=== PATIENT | male | born 1995 | race American Indian/Alaskan Native ===

== ENCOUNTER 2020-01-07 00:25 | Emergency (ER) | payer OTHER ==
[~2020-01-07] VITALS: Ht 182.9 cm; Wt 139.3 kg
[2020-01-07 00:33] VITALS: Ht 182.9 cm; Wt 139.3 kg
[2020-01-07 01:31] LABS: BASOPHIL % 0.8 % (0-2); PLATELET COUNT 328 x10^3mcL (130-400); RED CELL DISTRIBUTION WIDTH 12.7 % (11.5-14.5)
[2020-01-07 01:46] LABS: CALCIUM 8.7 mg/dL (8.5-10.1); CARBON DIOXIDE 26.2 mmol/L (21-32); CHLORIDE SERUM 105 mmol/L (98-107); CREATININE SERUM 0.9 mg/dL (0.7-1.3); GFR1 > 60 mL/min; GLUCOSE SERUM 134 mg/dL (74-106); POTASSIUM SERUM 3.5 mmol/L (3.5-5.1); SODIUM SERUM 141 mmol/L (136-145)
[2020-01-07 01:52] LABS: ALBUMIN 3.6 g/dL (3.4-5.0); ALKALINE PHOSPHATASE 77 U/L (46-116); ALT/SGPT 87 U/L (16-63); AST/SGOT 32 U/L (15-37); BILIRUBIN TOTAL 0.6 mg/dL (0.20-1.00); TOTAL PROTEIN, SERUM 7.5 g/dL (6.4-8.2)
[2020-01-07 03:00] VITALS: BP 135/83
== END 2020-01-07 03:00 | disposition home or self-care (01) ==
LOC: ED 00:25
PROVIDERS: Emergency Medicine
DX: E11.9 Type 2 diabetes mellitus without complications (principal); K21.9 Gastro-esophageal reflux disease without esophagitis
CPT/HCPCS: 82962; Q0162